=== PATIENT | male | born 2000 | race Caucasian/White ===

== ENCOUNTER 2024-04-29 18:58 | Emergency (ER) | payer BC, SELFPAY ==
[2024-04-29 19:00] VITALS: BP 118/74; PULSE 66; RESP 16; TEMP 36.6; O2SAT 100; BMI 21.9
--- NOTE | 2024-04-29 19:14 | ED.RN ---
Dr. Neri bedside
--- NOTE | 2024-04-29 19:15 | US_ITS ---
EXAM: US SCROTUM CLINICAL INDICATION: Swelling and discomfort left TECHNIQUE: Realtime ultrasound of the testicles was performed with grayscale and Color Doppler analysis. COMPARISON: No relevant prior studies available. FINDINGS: RIGHT TESTICLE: No significant abnormality. Normal in size and echotexture. No focal lesion. Normal blood flow is present. The right testicle measures 4.9 x 2.7 x 2.0 cm. LEFT TESTICLE: No significant abnormality. Normal in size and echotexture. No focal lesion. Normal blood flow is present. The left testicle measures 4.8 x 2.9 x 2.4 cm. EPIDIDYMIDES: No significant abnormality. Normal in size and echotexture, without focal lesion. Normal color Doppler flow pattern in the epididymis. SCROTUM: There is a small right hydrocele. There is a small left hydrocele with apparent debris. Small left varicocele is identified. US/Testicular with Arterial Flow IMPRESSION: 1. No acute intratesticular pathology. 2. Small left varicocele is identified. 3. Bilateral hydrocele with apparent debris on the left. Electronically Signed: Peter Hodges DO at 20:11 EST ,
--- NOTE | 2024-04-29 19:21 | ED.RN ---
Patient transported to radiology.
--- NOTE | 2024-04-29 20:34 | EX.ED.GUMALE ---
HPI History of Present Illness Chief Complaint: Male Pain/Injury Detail of Chief Complaint: Left testicular pain and swelling compared to right Informant: patient Pain Onset: Days Timing: Intermittent Current Severity: Mild Maximum Severity: Mild Worsened by: Possibly pressure to the epididymal area Relieved by: Nothing Appearance Lesion(s): No Genital Edema: No Penile Discharge Genital Discharge Amount: None Urinary Symptoms Genitourinary Symptoms: No Symptoms Related History Sexually: Inactive Narrative Narrative: Patient is a 23-year-old male. He has no history of STI. There is no history of trauma. He denies dysuria, frequency, urgency or hematuria. Denies penile lesions or discharge. He complains of swelling of his left testicle with discomfort. He has discomfort when he touches over superior pole of the left testicle and minimal posterior inferior pole of the left testicle. He has not noted any mass or tenderness in the right or left inguinal area. He denies fever, chills night sweats. Prior similar symptoms: No Recent Illness/Hospitalization: No PFSH PFSH Medical History no medical history no medical history Home Medications ?Medication ?Instructions ?Recorded ?Last Taken ?Type NK 04/29/24 Unknown History Allergy/AdvReac Type Severity Reaction Status Date / Time No Known Allergies Allergy Verified 04/29/24 19:00 Surgical History no surgical history no surgical history Social History Smoking Status: Never smoker ROS ROS ED Constitutional Constitutional ED: Denies chills, fever(s), subjective or sweats Eyes Eyes: Reports other Details: No complaint of photophobia. ENT ENT ED: Denies sore throat Gastrointestinal Gastrointestinal: Denies abdominal pain, nausea or vomiting Genitourinary Genitourinary ED: Reports other Details: Per HPI narrative ; Denies dysuria, hematuria or urinary frequency Musculoskeletal Musculoskeletal: Denies back pain Integumentary Denies rash EXAM Physical Exam Const Vital Signs: 04/29/24 19:00 Temperature 97.9 F Temperature Source Oral Pulse Rate 66 Respiratory Rate 16 Blood Pressure 118/74 Blood Pressure Mean 88 Pulse Ox 100 Oxygen Delivery Method Room Air Positive well nourished and well developed General Appearance ED: well developed and NAD; Negative for pallor HEENT Reports moist mucous membranes normocephalic and atraumatic Eyes PERRL and EOMs intact bilaterally General Eye ED: Negative for scleral icterus Neck no lymphadenopathy, supple and no JVD Resp normal respiratory effort Cardio regular rate and regular rhythm GI non-tender, non-distended and no masses Palpation: soft no CVA tenderness Narrative: External genitalia normal. There is no penile lesion or discharge. Patient is circumcised. Testes descended bilaterally. The left testicle is slightly tender over the varicocele he and question of transillumination of light left testicle. There is no uma lymphadenopathy. Groin / Perineum Exam: Negative for edema or lesions Back/Spine no CVA tenderness Neuro oriented x3 and CN's II-XII intact bilaterally Sensorium / Orientation: alert Psych mental status grossly normal Skin General Skin Exam: Negative for jaundice or pallor Lesions: no lesions Rashes: no rashes MDM MDM MDM Narrative Medical decision making narrative: Differential diagnosis would be orchitis, doubt epididymitis, hydrocele, varicocele, doubt STI since he is not sexually active and has no penile discharge or urinary symptoms. Will obtain ultrasound to assess why the left testicle is larger than the right. Radiography Diagnostic Testing: Clinical Impression(s) from Imaging Studies Testicular Ultrasound 04/29/24 19:15 IMPRESSION: 1. No acute intratesticular pathology. 2. Small left varicocele is identified. 3. Bilateral hydrocele with apparent debris on the left. Electronically Signed: Peter Hodges DO at 20:11 EST , Discharge Plan Triage Chief Complaint: Male Pain/Injury ED Provider: Niall Neri Dx/Rx/DC Orders Clinical Impression: Left varicocele, Bilateral hydrocele Instructions: ED Hydrocele, Type Not Specified, ED Varicocele Prescriptions: No Action NK Primary Care Provider: KEVIN HOUSER Referrals: KEVIN HOUSER [Other] Preston Lange MD [Med Staff - Active Staff] - 1 Week Activity Restrictions/Additional Instructions: Recommend taking either 4 ibuprofen tablets every 8 hours or 2 Aleve tablets every 12 hours for the next 3 to 5 days for your discomfort. You were referred to Dr. Lange who is a urologist if this continues to bother you. Print Language: Kyrgyz Disposition Disposition: Home, Self Care
[2024-04-29 20:45] VITALS: BP 118/74; PULSE 66; RESP 16; TEMP 36.6; O2SAT 100
== END 2024-04-29 20:47 | disposition home or self-care (01) ==
PROVIDERS: Emergency Provider Emergency Medicine; Visit Provider Emergency Medicine
DX: I86.1 Scrotal varices (principal); N43.3 Hydrocele, unspecified
CPT/HCPCS: 76870; 93976; 99282